=== PATIENT | female | born 1940 | race Caucasian/White ===

== ENCOUNTER → 2017-04-12 | Outpatient (CLI) | payer MEDICARE ==
[~2017-04-12] MED LIST: /FENT50PA; /ONDA4TA OR; /PANT40TA; /WARF25TA; /WARF5TA; ACET500C; CELEBRE200 PO; COUM10TA; COUM1TAB; COUMADIN5 PO; DARVOCET-N PO; DIPH2.5L; FERR325T; FOLI1TAB; HCTZ25 PO; JANT7.5T; LASI40TA; LASIX20 PO; LOPERAMIDE; MYLI40DR PO; NAPR500T; PERC5TAB8; POTA20TA2; PRIL40CA; PROTONIX40 PO; ROCE1INJ; TPN; TYLE325T5 PO; VANC12CA IV; VANCOMYCIN; VICO5TAB; VICO5TAB OR; VICODIN PO; VITA2000 PO; [UNRECOGNIZED DRUG - CODE]; [UNRECOGNIZED DRUG - CODE] PO; [UNRECOGNIZED DRUG - SUPPLY] TOPICAL
--- NOTE | 2017-04-12 12:41 | REPMRS ---
Patient History The patient states she has not had a clinical breast exam in over a year. Patient is postmenopausal. No known family history of cancer. Digital Mammo Screening Bilat: April 12, 2017 - Exam #: [id number] Bilateral CC and MLO view(s) were taken. Technologist: Alana Ross, Technologist Prior study comparison: April 27, 2016, bilateral digital mammo screening bilat performed at [facility]. April 23, 2015, bilateral digital mammo screening bilat performed at [facility]. FINDINGS: There are scattered fibroglandular densities. There is a fairly symmetric fibroglandular pattern in both breasts. There has been no interval development of masses, areas of architectural distortion or clusters of microcalcifications typical of malignancy. ASSESSMENT: BI-RADS/ACR category 2 mammogram. Benign finding(s). Recommendation Routine screening mammogram of both breasts in 1 year (for women over age 40). This mammogram was interpreted with the aid of an FDA-approved computer-aided dectection system. Electronically Signed By: William Díaz MD 04/12/17 0329
== END ==
LOC: M RAD 11:25
PROVIDERS: ATTEND Family Medicine
DX: Z12.31 Encounter for screening mammogram for malignant neoplasm of breast (principal)

== ENCOUNTER → 2018-04-23 | Outpatient (CLI) | payer MEDICARE | LOC: M RAD 10:48 | DX: Z12.31 Encounter for screening mammogram for malignant neoplasm of breast (principal) ==

== ENCOUNTER → 2019-02-15 | Outpatient (REF) | payer MEDICARE ==
[~2019-02-15] MED LIST changes: -/FENT50PA; -/ONDA4TA OR; -/PANT40TA; -/WARF25TA; -/WARF5TA; +COUM1TAB17; +COUM1TAB18; +FENT1DIS15; +ONDA-1 OR; +PROT1TAB2
[2019-02-15 17:18] LABS: AMORPHOUS SEDIMENT SMALL (NEGATIVE); APPEARANCE, URINE TURBID (CLEAR); BACTERIA, URINE AUTO NEGATIVE (NEGATIVE); BILIRUBIN, URINE AUTO NEGATIVE (NEGATIVE); BLOOD, URINE BLOOD 3+ (NEGATIVE); COLOR, URINE AMBER (YELLOW); GLUCOSE, URINE (UA) AUTO NEGATIVE (NEGATIVE); KETONE, URINE AUTO NEGATIVE (NEGATIVE); LEUKOCYTE ESTERASE, URINE AUTO 3+ (NEGATIVE); NITRITE, URINE AUTO NEGATIVE (NEGATIVE); PROTEIN, URINE AUTO 2+ mg/dL (NEGATIVE); RBC, URINE AUTO TNTC /HPF (0-3); SPECIFIC GRAVITY URINE AUTO 1.014 (1.002-1.035); SQUAMOUS EPITHELIAL CELL UR AU 3 /HPF (0-6); UROBILINOGEN, URINE AUTO 0.2 mg/dL (0.0-2.0); WBC, URINE AUTO TNTC /HPF (0-3)
== END ==
LOC: M LAB REF 16:38
PROVIDERS: ATTEND Family Medicine
DX: R31.9 Hematuria, unspecified (principal)

== ENCOUNTER → 2019-03-28 | Outpatient (REF) | payer MEDICARE | LOC: M LAB REF 12:59 | PROVIDERS: ATTEND Internal Medicine Nephrology | DX: Z87.440 Personal history of urinary (tract) infections (principal) ==

== ENCOUNTER → 2020-03-02 | Outpatient (REF) | payer MEDICARE | LOC: M LAB REF 18:00 | PROVIDERS: ATTEND Internal Medicine Nephrology | DX: Z87.442 Personal history of urinary calculi (principal); Z79.899 Other long term (current) drug therapy ==

== ENCOUNTER → 2020-07-23 | Outpatient (REF) | payer MEDICARE | LOC: M LAB REF 16:21 | PROVIDERS: ATTEND Family Medicine | DX: R35.0 Frequency of micturition (principal) ==

== ENCOUNTER → 2021-02-02 | Outpatient (REF) | payer MEDICARE | LOC: M LAB REF 16:25 | PROVIDERS: ATTEND Family Medicine | DX: N18.30 Chronic kidney disease, stage 3 unspecified (principal); Z87.442 Personal history of urinary calculi ==

== ENCOUNTER → 2021-02-11 | Outpatient (CLI) | payer MEDICARE ==
[~2021-02-11] MED LIST changes: +GASTROGRAFIN SOLUTION 30ML (Q9963) As Ordered ONE
--- NOTE | 2021-02-11 11:21 | REP ---
INDICATION: GENERALIZED ABD PAIN COMPARISON: 03/28/2016. TECHNIQUE: CT Scan of the abdomen and pelvis was performed without intravenous contrast. Oral contrast was administered. Sagittal and coronal reconstruction images performed. FINDINGS: Lung bases: There are mild bibasilar fibrotic changes. There is [id number] hiatal hernia. Liver: Grossly unremarkable. Gallbladder: Status post cholecystectomy. Spleen: Grossly unremarkable. Adrenals: Normal. Pancreas: Grossly unremarkable.. Kidneys: There is mild bilateral renal cortical thinning. There is 1.7 cm cyst in the lateral mid right kidney. There is a cluster of subcentimeter calcifications in the posterior right upper pole collecting system. There is no hydronephrosis. There is an extrarenal pelvis. Within the right renal pelvis there is an oval calculus measuring 11 x 7 mm. There is no left hydronephrosis. Four intrarenal calculi are seen in the upper and lower pole of the left renal collecting system. The largest is in the lower aspect measuring 9 x 7 mm. Ureters demonstrate no dilatation or calculus. 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 There is no free air, bowel wall thickening or evidence of obstruction. Free fluid: None. Abdominal aorta: No aneurysm. Adenopathy: None. Osseous structures: There are degenerative changes of the spine and left hip. There is a metallic right hip prosthesis causing streak artifact, somewhat limiting evaluation of pelvic structures. Pelvis: No mass. No bladder calculus seen. The previously noted fluid collections in the anterior abdominal wall have significantly improved. There may be a tiny amount of residual fluid in the right abdominal wall. There is diffuse postsurgical scarring and fibrosis in this region. There is wide diastasis of the rectus muscles with extension of bowel loops into an anterior subcutaneous location in the midline. There are scattered metallic clips in the anterior abdomen. There is an IVC filter present. IMPRESSION: Mild to moderate hiatal hernia. Bilateral intrarenal calculi without evidence of hydronephrosis. Right ileostomy again noted with no evidence of free air, bowel wall thickening or obstruction. Significant improvement of previously noted anterior abdominal wall fluid collections with a very small amount of residual fluid in the right anterior abdominal wall. 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 <Electronically signed by William Díaz > 02/11/21 1035
== END ==
LOC: M RAD 08:48
PROVIDERS: ATTEND Surgery
DX: R10.84 Generalized abdominal pain (principal)
CPT/HCPCS: 74176; Q9963

== ENCOUNTER → 2021-03-09 | Outpatient (CLI) | payer MEDICARE ==
[~2021-03-09] MED LIST changes: -GASTROGRAFIN SOLUTION 30ML (Q9963) As Ordered ONE; +ISOVUE-300 61% 50ML VIAL As Ordered ONE; +LIDOCAINE 1% MDV 20ML VIAL As Ordered ONE; +TRIAMCINOLONE ACETONIDE SUSP 40 MG/ML VIAL (J3301) As Ordered ONE
--- NOTE | 2021-03-09 20:18 | REP ---
INDICATION: PRIMARY OSTEO LT HIP. COMPARISON: None TECHNIQUE: The procedure was performed by MICHELL Patterson, under the direct supervision of Dr. Díaz. The benefits and risks of the procedure were explained to the patient, and an informed consent was obtained. Directly prior to the start of the procedure, a formal time-out was completed in the procedure room. The left femoral neck joint space was localized using fluoroscopic guidance. The skin was prepped and draped in a sterile fashion. Approximately 5 mL of 1% Lidocaine 10 mg/ml was used as a local anesthetic. Using fluoroscopic guidance, a #22 gauge spinal needle was inserted and advanced into the left femoral neck joint space. Approximately 1 mL of Isovue 300 was injected to verify placement. Six mL of a solution containing 5 mL 1% lidocaine 10 mg/ml and 1 mL Kenalog 40 milligrams/milliliter was injected into the joint space. The needle was removed and hemostasis was achieved. FINDINGS: The patient tolerated the procedure well and there were no immediate complications. IMPRESSION: 1. Fluoroscopic guided left hip intra-articular pain injection. 0.2 minutes of fluoroscopy time was utilized for this procedure. Some fluoroscopic images are performed with last image hold technology. These images require no additional radiation. <Electronically signed by Carri Campos > 03/09/21 1114 <Electronically signed by William Díaz > 03/09/212013
== END ==
LOC: M RADPRO 10:18
PROVIDERS: ATTEND Orthopaedic Surgery
DX: M16.12 Unilateral primary osteoarthritis, left hip (principal)
CPT/HCPCS: 20610; 77002; J3301; Q9967

== ENCOUNTER → 2021-04-26 | Outpatient (CLI) | payer MEDICARE ==
[~2021-04-26] MED LIST changes: -ISOVUE-300 61% 50ML VIAL As Ordered ONE; -LIDOCAINE 1% MDV 20ML VIAL As Ordered ONE; -TRIAMCINOLONE ACETONIDE SUSP 40 MG/ML VIAL (J3301) As Ordered ONE
--- NOTE | 2021-04-26 13:45 | REP ---
INDICATION: PERSONAL HISTORY OF URINARY CALCULI. COMPARISON: Comparison CT study is from February 11, 2021.. TECHNIQUE: Urinary tract sonography. FINDINGS: Scanning of the level of the urinary bladder shows that it is almost empty at the time of scanning but otherwise unremarkable. Scan quality in general is inhibited by patient body habitus and difficulty with breath holding.. Renal cortical echogenicity pattern is normal bilaterally and contours are smooth. There is a 1.7 cm cyst in the upper pole of the right kidney. Echogenic shadowing 10 mm structure is seen in the region of the right mid kidney consistent with a intrarenal calculus. No hydronephrosis is seen on either side. No mass lesion is observed.. The right kidney measures 9.7 x 5.3 x 4.9 cm. Left renal dimensions are 10.7 x 5.0 x 5.0 cm. IMPRESSION: Intrarenal nephrolithiasis right kidney. Small cyst upper pole right kidney.. <Electronically signed by Abner Busby > 04/26/21 [id number]
== END ==
LOC: M RAD 10:14
PROVIDERS: ATTEND Urology
DX: Z87.442 Personal history of urinary calculi (principal)

== ENCOUNTER → 2021-09-30 | Outpatient (REF) | payer MEDICARE | LOC: M LAB REF 16:10 | PROVIDERS: ATTEND Family Medicine | DX: M10.00 Idiopathic gout, unspecified site (principal) ==

== ENCOUNTER → 2022-03-22 | Outpatient (CLI) | payer MEDICARE ==
[~2022-03-22] MED LIST changes: +AMLO1TAB24 PO; +ELIQ5TAB PO; +HYDR-4571 PO; +POTA99TA14 PO; +XARE10TA PO; +XARE20TA PO
== END ==
LOC: M RAD 09:58
PROVIDERS: ATTEND Internal Medicine Nephrology
DX: N18.32 Chronic kidney disease, stage 3b (principal); R31.0 Gross hematuria

== ENCOUNTER → 2022-04-05 | Outpatient (REF) | payer MEDICARE | LOC: M LAB REF 17:32 | PROVIDERS: ATTEND Family Medicine | DX: M10.00 Idiopathic gout, unspecified site (principal) ==

== ENCOUNTER → 2022-07-19 | Outpatient (CLI) | payer MEDICARE | LOC: M SOG 08:03 | PROVIDERS: ATTEND Orthopaedic Surgery | DX: M17.11 Unilateral primary osteoarthritis, right knee (principal); M25.561 Pain in right knee ==

== ENCOUNTER → 2022-09-05 | Outpatient (REF) | payer MEDICARE | LOC: M LAB REF 16:16 | PROVIDERS: ATTEND Family Medicine | DX: M10.00 Idiopathic gout, unspecified site (principal) ==

== ENCOUNTER 2023-02-15 12:32 | Outpatient (RCR) | payer MEDICARE | END 2023-03-01 | LOC: M PT 12:32 | PROVIDERS: ATTEND Family Medicine | DX: M19.90 Unspecified osteoarthritis, unspecified site (principal); Z99.3 Dependence on wheelchair ==

== ENCOUNTER 2023-04-13 07:12 | Emergency (ER) | payer MEDICARE ==
[~2023-04-13] VITALS: Ht 152.4 cm; Wt 100.0 kg
[2023-04-13 07:13] VITALS: BP 146/80; TEMP 98.1; O2SAT 99
== END 2023-04-13 10:37 | disposition home or self-care (01) ==
LOC: M ED 07:12
DX: Z43.3 Encounter for attention to colostomy (principal); Z87.442 Personal history of urinary calculi; Z86.718 Personal history of other venous thrombosis and embolism; Z88.8 Allergy status to other drugs, medicaments and biological substances; Z79.899 Other long term (current) drug therapy

== ENCOUNTER → 2024-01-30 | Outpatient (REF) | payer MEDICARE | LOC: M LAB REF 16:43 | PROVIDERS: ATTEND Family Medicine | DX: M10.00 Idiopathic gout, unspecified site (principal) ==

== ENCOUNTER 2024-09-13 12:13 | Inpatient (IN) | payer MEDICARE ==
[~2024-09-13] VITALS: Ht 152.4 cm; Wt 97.6 kg
[2024-09-13 14:50] LABS: BASO % 0.2 % (0.0-1.0); EOS # 0.1 10^3/uL (0.0-0.5); EOS % 1.5 % (0.0-3.0); HEMATOCRIT 36.8 % (36.0-47.0); HEMOGLOBIN 11.6 g/dl (12.0-15.5); LYMPH # 0.6 10^3/uL (1.5-5.0); LYMPH % 9.6 % (24.0-44.0); MEAN CORPUSCULAR HEMOGLOBIN 32.3 pg (27.0-33.0); MEAN CORPUSCULAR HGB CONC 31.5 g/dl (32.0-36.5); MEAN CORPUSCULAR VOLUME 102.5 fl (80.0-96.0); MONO # 0.4 10^3/uL (0.0-0.8); MONO % 7.3 % (2.0-8.0); NEUTROPHILS # 4.9 10^3/uL (1.5-8.5); NEUTROPHILS % 80.7 % (36.0-66.0); PLATELET COUNT, AUTOMATED 124 10^3/uL (150-450); RED BLOOD COUNT 3.59 10^6/uL (4.00-5.40)
[2024-09-13 15:00] LABS: C REACTIVE PROTEIN QUANTITATIV 5.74 MG/DL (<1.0); CALCIUM LEVEL 8.8 MG/DL (8.3-10.6); CREATININE FOR GFR 1.93 MG/DL (0.55-1.30); GLOMERULAR FILTRATION RATE 26.5 (>32); POTASSIUM SERUM 4.9 MMOL/L (3.5-5.1)
[2024-09-13 15:11] LABS: ERYTHROCYTE SEDIMENTATION RATE 35 mm/hr (0-30)
[2024-09-13 17:48] LABS: ALBUMIN 3.1 G/DL (3.2-5.2); BILIRUBIN,DIRECT 0.3 MG/DL (<0.4); BILIRUBIN,TOTAL 0.7 MG/DL (0.3-1.2); TOTAL PROTEIN 6.7 G/DL (5.7-8.2)
[2024-09-13] MEDS ORDERED: HOME MED LIST COMPLETE! XX SCH (18:40)
[2024-09-13] MEDS: ACETAMINOPHEN *IV* 1,000 MG in IV 1 EA IV ONE (18:59)
[2024-09-13] MEDS ORDERED: ONDANSETRON 4MG 2ML VIAL IV PRN (19:35)
[2024-09-13 20:02] LABS: INR 1.04; PROTHROMBIN TIME 13.9 SECONDS (12.5-14.5)
[2024-09-13] MEDS ORDERED: MOM 30ML SUSPENSION UDC PO PRN (20:40)
[2024-09-13] MEDS ORDERED: ACETAMINOPHEN 325 MG TAB PO PRN (20:40)
[2024-09-13] MEDS: cefTRIAXone SOD 2 GM in DEXTROSE 5% (D5W) ADV/MINI-BAG 50 ML IV SCH (20:42)
[2024-09-13] MEDS: NS (Normal Saline) 0.9% 1,000 ML IV SCH (20:42)
[2024-09-13 21:20] LABS: CHOLESTEROL RISK RATIO 2.27 (<5); HDL CHOLESTEROL 69.9 MG/DL (>40); LDL CHOLESTEROL 73.1 MG/DL (<100); NON-HDL-C 89.1 MG/DL
[2024-09-13 21:23] LABS: THYROID STIMULATING HORMONE 0.53 uIU/ML (0.55-4.78)
[2024-09-13 21:51] LABS: HEMOGLOBIN A1c 4.6 % (4.0-6.0)
[2024-09-13 22:35] VITALS: BP 142/64; TEMP 98.1; O2SAT 100
[2024-09-13] MEDS: NORCO, ANEXSIA 5/325MG TABLET (HYDROcodone/ACETAMINOPHEN) PO PRN (23:12)
[2024-09-14] VITALS (7 sets, daily range): BP systolic 72–121; BP diastolic 36–66; TEMP 98.1–98.8; O2SAT 97–98
[2024-09-14] MEDS: NORCO, ANEXSIA 5/325MG TABLET (HYDROcodone/ACETAMINOPHEN) PO PRN (02:02)
[2024-09-14 07:12] LABS: HEMATOCRIT 31.8 % (36.0-47.0); MEAN CORPUSCULAR HEMOGLOBIN 31.7 pg (27.0-33.0); MEAN CORPUSCULAR HGB CONC 31.4 g/dl (32.0-36.5); PLATELET COUNT, AUTOMATED 106 10^3/uL (150-450); RED BLOOD COUNT 3.15 10^6/uL (4.00-5.40); WHITE BLOOD COUNT 3.3 10^3/uL (4.0-10.0)
[2024-09-14 07:41] LABS: ALBUMIN 2.5 G/DL (3.2-5.2); ALKALINE PHOSPHATASE 90 U/L (35-104); ALT/SGPT < 9 U/L (7.0-40); AST/SGOT 9 U/L (<34); BILIRUBIN,TOTAL 0.5 MG/DL (0.3-1.2); BLOOD UREA NITROGEN 36 MG/DL (9-23); CARBON DIOXIDE LEVEL 16 MMOL/L (20-31); CHLORIDE LEVEL 112 MMOL/L (98-107); CREATININE FOR GFR 1.83 MG/DL (0.55-1.30); GLOMERULAR FILTRATION RATE 28.2 (>32); GLUCOSE, FASTING 74 MG/DL (74-106); POTASSIUM SERUM 4.5 MMOL/L (3.5-5.1); SODIUM LEVEL 138 MMOL/L (136-145); TOTAL PROTEIN 5.5 G/DL (5.7-8.2)
[2024-09-14] MEDS: PANTOPRAZOLE 40MG VIAL IV SCH (08:11)
[2024-09-14] MEDS: TAMSULOSIN 0.4 MG CAP PO SCH (08:11)
[2024-09-14] MEDS: HEPARIN SOD (PORCINE) 5000UNITS/ML 1ML VIAL/SYRINGE SC SCH (08:11)
[2024-09-14] MEDS ORDERED: amLODIPine 5 MG TAB PO SCH (09:00)
[2024-09-14 14:50] LABS: HEMATOCRIT 32.6 % (36.0-47.0); HEMOGLOBIN 10.3 g/dl (12.0-15.5); MEAN CORPUSCULAR HEMOGLOBIN 32.5 pg (27.0-33.0); MEAN CORPUSCULAR HGB CONC 31.6 g/dl (32.0-36.5); MEAN CORPUSCULAR VOLUME 102.8 fl (80.0-96.0); PLATELET COUNT, AUTOMATED 104 10^3/uL (150-450); RED BLOOD COUNT 3.17 10^6/uL (4.00-5.40); WHITE BLOOD COUNT 3.2 10^3/uL (4.0-10.0)
[2024-09-14] MEDS: NS 500 ML IV ONE (20:10)
[2024-09-15 04:05] VITALS: BP 98/49; TEMP 97.9; O2SAT 94
[2024-09-15 08:26] VITALS: BP 110/50
[2024-09-15 09:06] LABS: HEMATOCRIT 35.2 % (36.0-47.0); HEMOGLOBIN 10.4 g/dl (12.0-15.5); MEAN CORPUSCULAR HEMOGLOBIN 31.6 pg (27.0-33.0); MEAN CORPUSCULAR HGB CONC 29.5 g/dl (32.0-36.5); PLATELET COUNT, AUTOMATED 115 10^3/uL (150-450); RED BLOOD COUNT 3.29 10^6/uL (4.00-5.40)
[2024-09-15 09:32] LABS: CALCIUM LEVEL 8.1 MG/DL (8.3-10.6); CREATININE FOR GFR 1.78 MG/DL (0.55-1.30); GLOMERULAR FILTRATION RATE 29.1 (>32); POTASSIUM SERUM 4.2 MMOL/L (3.5-5.1)
[2024-09-15 12:00] VITALS: BP 118/70; TEMP 97.9; O2SAT 96
[2024-09-15] MEDS: FLUBLOK(EGGFREE) TRIVAL(24-25) VACCINE PF 0.5ML SYRINGE 18YRS & OLDER IM.IMMUN ONE (13:19)
[2024-09-15 19:52] VITALS: BP 104/48; TEMP 98.1; O2SAT 96
[2024-09-16 03:40] VITALS: BP 107/50; TEMP 97.9; O2SAT 97
[2024-09-16 05:48] LABS: HEMOGLOBIN 9.6 g/dl (12.0-15.5); MEAN CORPUSCULAR HEMOGLOBIN 32.3 pg (27.0-33.0); PLATELET COUNT, AUTOMATED 107 10^3/uL (150-450); RED BLOOD COUNT 2.97 10^6/uL (4.00-5.40); WHITE BLOOD COUNT 3.3 10^3/uL (4.0-10.0)
[2024-09-16 06:25] LABS: CALCIUM LEVEL 7.8 MG/DL (8.3-10.6); CREATININE FOR GFR 1.77 MG/DL (0.55-1.30); GLOMERULAR FILTRATION RATE 29.3 (>32)
[2024-09-16 12:00] VITALS: BP 110/54; TEMP 97.9; O2SAT 97
[2024-09-16] MEDS: CEFDINIR 300 MG CAP (OMNICEF) PO SCH (20:18)
[2024-09-16 20:59] VITALS: BP 112/55; TEMP 97.9; O2SAT 98
[2024-09-17 03:55] VITALS: BP 143/72; TEMP 97.9; O2SAT 98
[2024-09-17 05:14] LABS: HEMATOCRIT 31.1 % (36.0-47.0); HEMOGLOBIN 10.1 g/dl (12.0-15.5); MEAN CORPUSCULAR HEMOGLOBIN 32.5 pg (27.0-33.0); MEAN CORPUSCULAR HGB CONC 32.5 g/dl (32.0-36.5); PLATELET COUNT, AUTOMATED 118 10^3/uL (150-450); RED BLOOD COUNT 3.11 10^6/uL (4.00-5.40); WHITE BLOOD COUNT 4.2 10^3/uL (4.0-10.0)
[2024-09-17 05:40] LABS: CALCIUM LEVEL 7.8 MG/DL (8.3-10.6); CREATININE FOR GFR 1.57 MG/DL (0.55-1.30); GLOMERULAR FILTRATION RATE 33.7 (>32); POTASSIUM SERUM 4.1 MMOL/L (3.5-5.1)
[2024-09-17] MEDS: SODIUM BICARBONATE 325 MG TAB PO SCH (10:54)
[2024-09-17 12:00] VITALS: BP 148/78; TEMP 97; O2SAT 97
[2024-09-17 20:00] VITALS: BP 126/53; TEMP 97.9; O2SAT 96
[2024-09-18 04:00] VITALS: BP 122/52; TEMP 98.1; O2SAT 95
[2024-09-18 07:46] LABS: HEMATOCRIT 30.3 % (36.0-47.0); MEAN CORPUSCULAR HEMOGLOBIN 32.3 pg (27.0-33.0); MEAN CORPUSCULAR VOLUME 97.7 fl (80.0-96.0); PLATELET COUNT, AUTOMATED 124 10^3/uL (150-450); WHITE BLOOD COUNT 4.3 10^3/uL (4.0-10.0)
[2024-09-18 07:54] LABS: CALCIUM LEVEL 8.2 MG/DL (8.3-10.6); CREATININE FOR GFR 1.56 MG/DL (0.55-1.30); GLOMERULAR FILTRATION RATE 33.9 (>32)
[2024-09-18] MEDS: FUROSEMIDE 40MG/4ML VIAL IV ONE (10:06)
[2024-09-18] MEDS: CEFDINIR 300 MG CAP (OMNICEF) PO SCH (10:06)
[2024-09-18] MEDS: DOXYCYCLINE HYCLATE 100MG TABLET PO SCH (10:07)
[2024-09-18 12:00] VITALS: BP 128/57; TEMP 98.4; O2SAT 98
[2024-09-18] MEDS ORDERED: DOXY100T PO ×2 (14:20→17:16)
[2024-09-18] MEDS ORDERED: SODI325T9 PO ×2 (14:20→17:17)
[2024-09-18] MEDS ORDERED: CEFD300CAP PO (14:20)
[2024-09-18] MEDS ORDERED: FLOM0.4C39 PO ×2 (14:20→17:16)
[2024-09-18] MEDS ORDERED: CEFD1CAP9 PO (17:21)
[2024-09-19] MEDS ORDERED: TORS20TA2 PO (12:30)
[2024-09-19] MEDS ORDERED: POTA-136 PO (12:30)
== END 2024-09-18 15:41 | disposition home or self-care (01) | DRG 872 ==
LOC: M ED 12:13 → EDBD 12:13 → EEVIPCON 20:40 → M ED INP 20:40 → M MSPAV 22:35
PROVIDERS: ADMIT Student in an Organized Health Care Education/Training Program; ATTEND Internal Medicine Nephrology
DX: A41.9 Sepsis, unspecified organism (principal); N39.0 Urinary tract infection, site not specified; Z68.41 Body mass index [BMI] 40.0-44.9, adult; I82.512 Chronic embolism and thrombosis of left femoral vein; L03.116 Cellulitis of left lower limb; B96.20 Unspecified Escherichia coli [E. coli] as the cause of diseases classified elsewhere; I12.9 Hypertensive chronic kidney disease with stage 1 through stage 4 chronic kidney disease, or unspecified chronic kidney disease; N18.9 Chronic kidney disease, unspecified; E66.01 Morbid (severe) obesity due to excess calories; D64.9 Anemia, unspecified; Z96.641 Presence of right artificial hip joint; Z96.652 Presence of left artificial knee joint; Z86.718 Personal history of other venous thrombosis and embolism; Z87.442 Personal history of urinary calculi; Z99.3 Dependence on wheelchair; I87.8 Other specified disorders of veins; R26.89 Other abnormalities of gait and mobility; Z88.8 Allergy status to other drugs, medicaments and biological substances; Z79.899 Other long term (current) drug therapy; R31.9 Hematuria, unspecified; Z93.2 Ileostomy status

== ENCOUNTER 2024-09-18 16:19 | Emergency (ER) | payer MEDICARE ==
[~2024-09-18] VITALS: Ht 152.4 cm; Wt 97.6 kg
[~2024-09-18 16:19] MED LIST changes: +CEFD300CAP PO; +DOXY100T PO; +FLOM0.4C39 PO; +SODI325T9 PO
[2024-09-18] MEDS ORDERED: FLOM0.4C39 PO (17:16)
[2024-09-18] MEDS ORDERED: DOXY100T PO (17:16)
[2024-09-18] MEDS ORDERED: SODI325T9 PO (17:17)
[2024-09-18] MEDS ORDERED: CEFD1CAP9 PO (17:21)
[2024-09-18] MEDS ORDERED: HOME MED LIST COMPLETE! XX SCH (17:25)
[2024-09-18 18:57] LABS: BASO % 0.1 % (0.0-1.0); EOS # 0.1 10^3/uL (0.0-0.5); EOS % 0.7 % (0.0-3.0); HEMATOCRIT 34.7 % (36.0-47.0); HEMOGLOBIN 11.4 g/dl (12.0-15.5); LYMPH # 0.7 10^3/uL (1.5-5.0); LYMPH % 10.4 % (24.0-44.0); MEAN CORPUSCULAR HEMOGLOBIN 31.8 pg (27.0-33.0); MEAN CORPUSCULAR HGB CONC 32.9 g/dl (32.0-36.5); MEAN CORPUSCULAR VOLUME 96.9 fl (80.0-96.0); MONO # 0.8 10^3/uL (0.0-0.8); MONO % 11.5 % (2.0-8.0); NEUTROPHILS # 5.2 10^3/uL (1.5-8.5); PLATELET COUNT, AUTOMATED 146 10^3/uL (150-450); RED BLOOD COUNT 3.58 10^6/uL (4.00-5.40); WHITE BLOOD COUNT 6.8 10^3/uL (4.0-10.0)
[2024-09-18 19:29] LABS: CALCIUM LEVEL 8.3 MG/DL (8.3-10.6); CREATININE FOR GFR 1.71 MG/DL (0.55-1.30); GLOMERULAR FILTRATION RATE 30.5 (>32); POTASSIUM SERUM 4.1 MMOL/L (3.5-5.1)
[2024-09-18] MEDS ORDERED: ACETAMINOPHEN 325 MG TAB PO PRN (19:40)
[2024-09-18] MEDS: SODIUM BICARBONATE 325 MG TAB PO SCH (20:40)
[2024-09-18] MEDS: CEFDINIR 300 MG CAP (OMNICEF) PO SCH (20:40)
[2024-09-18] MEDS: DOXYCYCLINE HYCLATE 100MG TABLET PO SCH (20:40)
[2024-09-18] MEDS: FUROSEMIDE 40MG/4ML VIAL IV ONE (20:41)
[2024-09-19] MEDS: TAMSULOSIN 0.4 MG CAP PO SCH (09:08)
[2024-09-19] MEDS: POTASSIUM CHLORIDE 10MEQ SR TABLET PO SCH (09:08)
[2024-09-19] MEDS: TORSEMIDE 20 MG TAB PO SCH (09:08)
[2024-09-19] MEDS ORDERED: TORS20TA2 PO (12:30)
[2024-09-19] MEDS ORDERED: POTA-136 PO (12:30)
[2024-09-19 15:25] VITALS: BP 139/66; TEMP 99.7; O2SAT 97
== END 2024-09-19 15:47 | disposition left against medical advice (07) ==
LOC: M ED 16:19
DX: R53.1 Weakness (principal); L03.116 Cellulitis of left lower limb; I10 Essential (primary) hypertension; N18.9 Chronic kidney disease, unspecified; Z86.718 Personal history of other venous thrombosis and embolism; Z87.442 Personal history of urinary calculi; Z88.8 Allergy status to other drugs, medicaments and biological substances; Z79.2 Long term (current) use of antibiotics; Z79.899 Other long term (current) drug therapy; Z53.9 Procedure and treatment not carried out, unspecified reason
CPT/HCPCS: 80048; 85025; 93041; 94760; 96374; 97162; 97530; 99285; J1940

== ENCOUNTER → 2025-01-24 | Outpatient (REF) | payer MEDICARE ==
[~2025-01-24] MED LIST changes: +CEFD1CAP9 PO; -FLOM0.4C39 PO; +POTA-136 PO; +TAMS-18 PO; +TORS20TA2 PO
== END ==
LOC: M LAB REF 17:02
PROVIDERS: ATTEND Family Medicine
DX: M10.00 Idiopathic gout, unspecified site (principal)